=== PATIENT | male | born 2000 | race Caucasian/White ===

== ENCOUNTER 2022-12-27 10:15 | Emergency (ER) | payer BC, OTHER ==
--- NOTE | 2022-12-27 10:38 | ED Physician Documentation ---
PD HPI NVD - Stated complaint Stated Complaint: VOMIT,PX,NAUSEA - Chief complaint Chief Complaint: Abd Pain - History obtained from History obtained from: Patient - History of Present Illness Timing - onset: How many hours ago (1), Today Timing - duration: Hours (1) Timing - details: Abrupt onset, Still present Pain level max: 10 Pain level now: 10 Associated symptoms: Abdominal pain, Loss of appetite. No: Fever, Near syncope / syncope Contributing factors: Other (denies cannibis regular use.). No: Sick contact, Bad food, Alcohol use Improved by: No: Vomiting Worsened by: No: Moving (pain is severe and not affectd by movement, breathing.), Palpation Similar symptoms before: Has not had sx before Recently seen: Not recently seen Review of Systems Constitutional: denies: Fever, Chills Nose: denies: Rhinorrhea / runny nose, Congestion Throat: denies: Sore throat Respiratory: denies: Cough GI: reports: Abdominal Pain, Nausea, Vomiting. denies: Constipation, Diarrhea : denies: Dysuria, Frequency Skin: denies: Rash Neurologic: denies: Near syncope, Syncope PD PAST MEDICAL HISTORY - Past Medical History Cardiovascular: None Respiratory: None Neuro: None Endocrine/Autoimmune: None - Present Medications Home Medications: Ambulatory Orders Medication Instructions Recorded Confirmed HYDROcod/ACETAM 5/325 [[place] 5/325] 1 ea PO Q6H PRN #12 tablet 12/27/22 Naproxen 250 mg PO TID 5 Days #15 tablet 12/27/22 Ondansetron Odt [Zofran] 4 mg TL Q6H PRN #10 tablet 12/27/22 - Allergies Allergies/Adverse Reactions: Allergies Allergy/AdvReac Type Severity Reaction Status Date / Time No Known Drug Allergies Allergy Verified 12/27/22 10:27 - Living Situation Living Situation: reports: With spouse/s.o. Living Arrangement: reports: At home (they are visiting [facility] from [place] and returning in few days. ) - Social History Does the pt smoke?: No Does the pt have substance abuse?: No PD ED PE NORMAL - Vitals Vital signs reviewed: Yes - General General: Alert and oriented X 3, Well developed/nourished, Other (appears in severe pain, with sweating, nausea and vomiting. ) - Neck Neck: Supple, no meningeal sign, No adenopathy - Cardiac Cardiac: RRR, No murmur - Respiratory Respiratory: No respiratory distress, Clear bilaterally - Abdomen Abdomen: Normal bowel sounds, Soft, Non distended, No organomegaly, Other (tender right mid abd and lateral abd. Moderate right CVA tenderness to percussion. Left abd not tender. ) - Derm Derm: Warm and dry, No rash. No: Normal color (somewhat pale coloring. ) - Extremities Extremities: Normal ROM s pain, No edema, No calf tenderness / cord - Neuro Neuro: Alert and oriented X 3, No motor deficit, Normal speech Results - Vitals Vitals: Vital Signs - 24 hr 12/27/22 12/27/22 12/27/22 10:23 12:27 14:02 Temperature 36.4 C L 36.5 C Heart Rate 65 55 L 58 L Respiratory 20 15 15 Rate Blood Pressure 135/86 H 101/68 102/65 O2 Saturation 100 99 99 Oxygen O2 Source Room air - Labs Labs: Laboratory Tests 12/27/22 12/27/22 12/27/22 10:37 10:37 13:14 WBC 5.6 RBC 4.93 Hgb 14.5 Hct 42.9 MCV 87.0 MCH 29.4 MCHC 33.8 RDW 12.8 Plt Count 254 MPV 10.2 Neut # (Auto) 2.6 Lymph # (Auto) 2.3 [place] # (Auto) 0.5 Eos # (Auto) 0.1 Baso # (Auto) 0.1 Absolute Nucleated RBC 0.00 Nucleated RBC % 0.0 Sodium 141 Potassium 3.4 L Chloride 107 Carbon Dioxide 25 Anion Gap 9.0 BUN 22 H Creatinine 0.9 Estimated GFR (MDRD) 104 Glucose 126 H Calcium 9.9 Total Bilirubin 1.0 AST 23 ALT 21 Alkaline Phosphatase 68 Total Protein 7.4 Albumin 4.8 Globulin 2.6 Albumin/Globulin Ratio 1.8 Lipase 31 Urine Color YELLOW Urine Clarity CLOUDY Urine pH 7.0 Ur Specific [place] 1.020 Urine Protein 30 H Urine Glucose (UA) NEGATIVE Urine Ketones NEGATIVE Urine Occult Blood MODERATE H Urine Nitrite NEGATIVE Urine Bilirubin NEGATIVE Urine Urobilinogen 0.2 (NORMAL) Ur Leukocyte Esterase NEGATIVE Urine RBC TNTC H Urine WBC 0-3 Ur Squamous Epith Cells FEW Squamous Amorphous Sediment Moderate Urine Bacteria Moderate H Ur Microscopic Review INDICATED Urine Culture Comments NOT INDICATED - Rads (name of study) abd right U/S Relevant Findings:: Prelim report reviewed (evaluated abd with U/S showing no hydronephrosis, normal gallbladder and visualized portion of liver/pancreas. U/S tech said apparent visualization of appendix is normal. ), EMP independent interpretation of test PD Medical Decision Making - ED course Complexity details: reviewed results, considered differential (abrupt severe right abd/flank pain, with nausea and vomiting repetitively. Had improved pain iwth IV fluids/Zofran/Toradol/Dilaudid, but still some nausea and medium pain. Given then dilaudid repeat dose and some inapsine for symptoms. This improve symptoms reasonably more. ), d/w patient Reviewed Lab Results: our CT scanner broken/stopped working this moring and are unable to get CT scan. Information obtained by U/S was able to exclude or show normal apendix, gallbladder, pancreas, and no hydronephrosis. UA with blood but no signs of infection. Labs showing normal lipase and lFTs. I feel there is adequate information to conclude likely ureterolithiasis without current hydronephrosis at time of US. I discussed withs with patient and his , and they are comfortable with the diasgnosis. He is much improved with the IV medications and states his pain is essentially gone at this time on recheck. So he nmay have already passed the stone to bladder. However, will want to give scripts for meds in case of return of pain/nausea. They are staying in [facility] for few more days. Pt to return to ER if worse pain/vomiting despite Rx meds. Departure - Departure Disposition: 01 Home, Self Care Clinical Impression: Right sided abdominal pain, Hematuria, Ureterolithiasis Condition: Stable Record reviewed to determine appropriate education?: Yes Instructions: ED Stone Renal W Colic Prescriptions: Naproxen 250 mg PO TID 5 Days #15 tablet HYDROcod/ACETAM 5/325 [[place] 5/325] 1 ea PO Q6H PRN #12 tablet PRN Reason: Pain Ondansetron Odt [Zofran] 4 mg TL Q6H PRN #10 tablet PRN Reason: Nausea / Vomiting Comments: Your pain onset/pattern/severity, along with blood in your urine and normal otherwise blood tests/ultrasound suggest passing a kidney stone. No signs of swelling of the kidney so it does not look like it is causing outflow obstruction in the ureter. It may be that the stone already passed given your improvement in pain at this point. However it may still be in the ureter and just not moving at the moment and not causing urine blockage. See how your pain does through the day and tomorrow. If you do not have any return of pain, then its may be that the stone already passed. If you have some on and off pains then use Tylenol if needed for mild pains in I prescribed hydrocodone pain medicine to use for worse pain if needed. As prescribed ondansetron/Zofran if needed for nausea. I would suggest some anti-inflammatory such as ibuprofen or naproxen 2-3 times daily for the next few days as even if the stone passes, there is often some inflammation left over with some mild aching. Adequate hydration. You do not need to over hydrate. Return check/return to the ER if intractable pain despite the prescriptions, fevers, repetitive vomiting, other concerns. I sent your prescriptions to the [facility] pharmacy in [place]. I am prescribing a short course of narcotic pain medication for you. These are potentially dangerous and addictive medications that should be used carefully. These medications may constipate you. Take an [id number] stool softener such as docusate twice daily with plenty of water while taking these medications. If you go 24 hours without a bowel movement, take [id number] MiraLAX, per package instructions. Do not drink or drive while taking these medications. If you received narcotic or sedating medications while in the emergency department do not drive for 24 hours. Store this medication in a safe, secure place and out of reach of children. It is a violation of federal law to give or sell this medication to another person or to use in a manner other than prescribed. The ED will not refill narcotic prescriptions, including prescriptions lost or stolen. You can dispose of unwanted medications at the [facility]'s office or at several pharmacies such as [facility]. Forms: PCP List Discharge Date/Time: 12/27/22 14:02
[2022-12-27] MEDS ORDERED: HYDROmorphone 1 MG/ML CARPUJECT IVP STA (10:50)
[2022-12-27] MEDS ORDERED: ONDANSETRON 4 MG/2 ML VIAL IVP STA (10:50)
[2022-12-27] MEDS ORDERED: KETOROLAC 15 MG/ML VIAL IVP STA (10:50)
[2022-12-27] MEDS ORDERED: SODIUM CHLORIDE 0.9% 1,000 ML IV STA (10:56)
[2022-12-27] MEDS ORDERED: HYDROmorphone 1 MG/ML CARPUJECT ONE (10:57)
[2022-12-27] MEDS ORDERED: ONDANSETRON 4 MG/2 ML VIAL ONE (10:58)
[2022-12-27] MEDS ORDERED: KETOROLAC 15 MG/ML VIAL ONE (10:58)
[2022-12-27] MEDS ORDERED: DROPERIDOL 5 MG/2 ML VIAL IVP STA (10:59)
[2022-12-27 11:00] LABS: BASOPHILS # (AUTO) 0.1 10^3/uL (0.0-0.1); BASOPHILS % (AUTO) 1.6 %; EOSINOPHILS # (AUTO) 0.1 10^3/uL (0.0-0.7); EOSINOPHILS % (AUTO) 2.5 %; HCT - HEMATOCRIT 42.9 % (42.0-52.0); HGB - HEMOGLOBIN 14.5 g/dL (14.0-18.0); LYMPHOCYTES # (AUTO) 2.3 10^3/uL (1.5-3.5); LYMPHOCYTES % (AUTO) 40.6 %; MEAN CORPUSCULAR HEMOGLOBIN 29.4 pg (27.0-31.0); MEAN CORPUSCULAR HGB CONC 33.8 g/dL (32.0-36.0); MEAN PLATELET VOLUME 10.2 fL (7.4-11.4); MONOCYTES # (AUTO) 0.5 10^3/uL (0.0-1.0); MONOCYTES % (AUTO) 8.8 %; NEUTROPHILS # (AUTO) 2.6 10^3/uL (1.5-6.6); NEUTROPHILS % (AUTO) 46.3 %; PLT - PLATELET COUNT 254 10^3/uL (130-450); RED BLOOD COUNT 4.93 10^6/uL (4.70-6.10); RED CELL DISTRIBUTION WIDTH 12.8 % (12.0-15.0); WHITE BLOOD COUNT 5.6 x10^3/uL (4.8-10.8)
[2022-12-27 11:15] LABS: ALBUMIN 4.8 g/dL (3.2-5.5); ALBUMIN/GLOBULIN RATIO 1.8 (1.0-2.2); CALCIUM 9.9 mg/dL (8.5-10.3); CREATININE 0.9 mg/dL (0.6-1.3); POTASSIUM 3.4 mmol/L (3.5-4.5); TOTAL PROTEIN 7.4 g/dL (6.4-8.9)
--- NOTE | 2022-12-27 12:34 | Ultrasound Report ---
PROCEDURE: Abdomen Limited INDICATIONS: RUQ abd/flank pain thia AM TECHNIQUE: Real-time focused scanning was performed of the abdomen, with image documentation. COMPARISONS: None. FINDINGS: Liver: Liver is normal in size and homogeneous in echotexture. Gallbladder: Unremarkable. Biliary ducts: Intrahepatic bile ducts are non-dilated. Extrahepatic bile duct caliber measures 4 m m. Normal is 6-7 mm or less in diameter, or 10 mm or less post-cholecystectomy. Pancreas: Visualized portions of the pancreas are sonographically normal. Right kidney: Normal in size and echotexture. Right kidney measures 10.3 cm long. No hydronephrosis or nephrolithiasis. No solid masses. No complex renal cystic lesions which require follow-up. Aorta: Visualized aorta is normal in caliber at less than 3 cm. IVC: Intrahepatic inferior vena cava is patent. Miscellaneous: No free abdominal fluid. IMPRESSION: No cholelithiasis or evidence of acute cholecystitis. Reviewed by: Chepe Neri MD on 12/27/2022 12:33 PM PDT Approved by: Chepe Neri MD on 12/27/2022 12:33 PM PDT Station ID: [id number]
[2022-12-27 13:07] VITALS: O2SAT 99
[2022-12-27 13:22] LABS: BILIRUBIN,URINE NEGATIVE (NEGATIVE); GLUCOSE, URINE (UA) NEGATIVE (NEGATIVE); KETONES,URINE (UA) NEGATIVE (NEGATIVE); LEUKOCYTE ESTERASE, URINE NEGATIVE (NEGATIVE); NITRITE,URINE NEGATIVE (NEGATIVE); OCCULT BLOOD,URINE MODERATE (NEGATIVE); PROTEIN,URINE 30 mg/dL (NEGATIVE); UROBILINOGEN,URINE 0.2 (NORMAL) E.U./dL (NORMAL)
[2022-12-27 13:32] LABS: BACTERIA,URINE Moderate /HPF (None Seen); CLARITY,URINE CLOUDY (CLEAR); RBC,URINE TNTC /HPF (0-5); SQUAMOUS EPITHELIAL CELL,UR FEW Squamous (<= Few); WBC,URINE 0-3 /HPF (0-3)
[2022-12-27 13:33] LABS: AMORPHOUS SEDIMENT,UR Moderate /LPF
[2022-12-27 14:10] VITALS: BP 102/65
== END 2022-12-27 14:02 | disposition home or self-care (01) ==
LOC: ED 10:15
DX: N20.1 Calculus of ureter (principal); R31.9 Hematuria, unspecified; R59.0 Localized enlarged lymph nodes
CPT/HCPCS: 36415; 76705; 80053; 81001; 83690; 85025; 96374; 96375; 99284; J1170; 81003; 87086